=== PATIENT | male | born 1955 | race Caucasian/White ===

== ENCOUNTER 2017-07-27 06:04 | Emergency (ER) | payer BC ==
[2017-07-27] MEDS ORDERED: ADENOSINE 6 MG/2 ML VIAL ONE ×2 (06:17→06:21)
[2017-07-27] MEDS ORDERED: ADENOSINE 6 MG/2 ML VIAL IVP ONE ×2 (06:18→06:20)
--- NOTE | 2017-07-27 06:18 | CPEKG ---
Heart Rate: 166 RR Interval: 361 P-R Interval: 224 QRSD Interval: 82 QT Interval: 316 QTC Interval: 526 P [place]: 0 QRS [place]: 21 T Wave [place]: 68 EKG Severity - ABNORMAL ECG - EKG Impression: SUPRAVENTRICULAR TACHYCARDIA EKG Impression: LOW VOLTAGE IN FRONTAL LEADS EKG Impression: BORDERLINE R WAVE PROGRESSION, ANTERIOR LEADS Electronically Signed By: Rajani Villarreal 27-Jul-2017 07:44:10
[2017-07-27] MEDS ORDERED: NS 1,000 ML IV ONE ×3 (06:31→07:09)
[2017-07-27 06:36] LABS: % IMMATURE GRANULYOCYTES 0.3 % (0.0-1.1); ABSOLUTE IMMATURE GRANULOCYTES 0.02 10^3/uL (0.00-0.10); ADD DIFF? NO; ADD MORPH? NO; ADD SCAN? NO; ATYPICAL LYMPHOCYTE FLAG 0 (0-99); FRAGMENT RBC FLAG 0 (0-99); HEMATOCRIT 43.6 % (40.0-51.0); LEFT SHIFT FLG 0 (0-99); LIPEMIA HEMOLYSIS FLAG 90 (0-99); MEAN CELL HEMOGLOBIN 30.3 pg (27.9-34.1); MEAN CELL HEMOGLOBIN CONCENTR. 34.4 g/dL (32.4-36.7); MEAN CELL VOLUME 88.1 fL (81.5-99.8); MEAN PLATELET VOLUME 12.3 fL (8.7-11.7); PLATELET CLUMPS FLAG 20 (0-99); PLATELET COUNT 161 10^3/uL (150-400); RED BLOOD CELL COUNT 4.95 10^6/uL (4.40-6.38); RED CELL DISTRIBUTION WIDTH 14.1 % (11.5-15.2)
[2017-07-27 06:42] LABS: ANION GAP 16 mEq/L (8-16); CALCIUM 9.3 mg/dL (8.5-10.4); CARBON DIOXIDE 21 mEq/l (22-31); CHLORIDE 97 mEq/L (97-110); CREATININE 0.8 mg/dL (0.7-1.3); GLOMERULAR FILTRATION RATE > 60; GLUCOSE 112 mg/dL (70-100); POTASSIUM 3.7 mEq/L (3.5-5.2); SODIUM 134 mEq/L (134-144)
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
[2017-07-27 06:53] LABS: TROPONIN I < 0.012 ng/mL (0.000-0.034)
--- NOTE | 2017-07-27 07:06 | CPEKG ---
Heart Rate: 147 RR Interval: 408 P-R Interval: 132 QRSD Interval: 86 QT Interval: 268 QTC Interval: 420 P [place]: 61 QRS [place]: 19 T Wave [place]: 75 EKG Severity - OTHERWISE NORMAL ECG - EKG Impression: SINUS TACHYCARDIA EKG Impression: LOW VOLTAGE IN FRONTAL LEADS Electronically Signed By: Rajani Villarreal 27-Jul-2017 07:43:48
[2017-07-27 08:30] LABS: COLOR YELLOW; LEUKOCYTE ESTERASE,URINE NEGATIVE (NEGATIVE); NITRITE,URINE NEGATIVE (NEGATIVE)
[2017-07-27] MEDS: METOPROLOL TARTRATE 5 MG/5 ML INJ IVP SCH ×3 (09:14→09:35)
[2017-07-27] MEDS ORDERED: IOPAMIDOL (ISOVUE 370) 100 ML BTL IV ONE (09:59)
[2017-07-27 11:16] VITALS: BP 120/86; PULSE 108; RESP 18; TEMP 98.6; O2SAT 95
--- NOTE | 2017-07-27 13:31 | ECHO ---
[email or web address] [address] [address] Main: [phone] Fax: Transthoracic Echocardiogram Name: TRENTON CLARK MR#: [id number] Study Date: 07/27/2017 Study Time: 09:55 AM Date of : 1955 Age: 61 year(s) Height: 182.9 cm (72 in.) Weight: 86.18 kg (190 lb.) BSA: 2.08 m2 Gender: Male Examination: Echo Indication: Supraventricular Tachycardia, SOB, Diaphoresis Image Quality: Contrast: Requested by: Rajani Villarreal BP: 117 mmHg/78 mmHg Heart Rate: Rhythm: Sinus tachycardia Indication: Supraventricular Tachycardia, SOB, Diaphoresis Procedure Staff Ordering Physician: DALJIT Blow Mold Operator: Dominic Suarez Reading Physician: Lily Owusu Conclusions: Normal size left ventricle. Low normal left ventricular systolic function (EF 53 %). The mid anteroseptal and mid septal wall segments are hypokinetic. No significant valvular disease There is no previous echocardiogram for comparison. Measurements: Chambers Valvular Assessment AV/MV Valvular Assessment TV/PV Normal Normal Normal Name Value Range Name Value Range Name Value Range Ao Portia (MM): 3.1 cm (2.2 cm-3.7 AV Vmax: 0.99 m/s (1 m/s-1.7 TR Vmax: 2.77 mm/s ( - ) cm) m/s) TR PGmax: 31 mmHg ( - ) IVSd (2D): 0.7 cm (0.6 cm-1.1 AV maxP mmHg ( - ) syst. PAP: 36 mmHg ( - ) cm) LVOT Vmax: 0.73 m/s (0.7 m/s-1.1 PV Vmax: 0.75 cm/s (0.6 m/s-0.9 LVDd (2D): 4.8 cm (4.2 cm-5.9 m/s) m/s) cm) MV E Vmax: 0.80 cm/s ( - ) PV PGmax: 2 mmHg ( - ) LVDs (2D): 3.9 cm (2.1 cm-4 MV A Vmax: 0.36 cm/s ( - ) cm) MV E/A: 2.22 ( - ) LVPWd (2D): 0.9 cm (0.6 cm-1 cm) LVEF (MOD4): 53 % (>=55 %) Visual EF: 55 Continued Measurements: Chambers Valvular Assessment AV/MV Valvular Assessment TV/PV Name Value Name Value Name Value LA Area: 15.0 cm2 MV E/E' Septal: 18.10 CVP (est.): 5 LA Volume: 38 ml MV E/E' Lateral: 10.10 Patient: TRENTON CLARK Study Date: 07/27/2017 Page 1 of 2 09:55 AM LA Volume Index: 18.3 ml/m2 Findings: Left Ventricle: Normal size left ventricle. Low normal left ventricular systolic function (EF 53 %). The mid anteroseptal and mid septal wall segments are hypokinetic. All remaining scored wall segments are normal. Diastolic dysfunction is present. . Right Ventricle: Normal size right ventricle. Normal RV function. Left Atrium: The left atrium is normal in size. Right Atrium: The right atrium is normal in size. Mitral Valve: The mitral valve is normal in appearance and function. Aortic Valve: The aortic valve is normal in appearance. The aortic valve is tri-leaflet. Tricuspid Valve: The tricuspid valve appears normal. Mild tricuspid regurgitation is present. The pulmonary artery pressure is normal. Pulmonic Valve: The pulmonic valve is normal in appearance and function. Great Vessels: The aorta is normal. Pericardium: No pericardial effusion. (No Signature Object) Wall Motion Scores Patient: TRENTON CLARK Study Date: 07/27/2017 Page 2 of 2 09:55 AM [id number]
== END 2017-07-27 11:16 | disposition home or self-care (01) ==
DX: E86.0 Dehydration (principal); R00.0 Tachycardia, unspecified; J45.909 Unspecified asthma, uncomplicated; I10 Essential (primary) hypertension; Z87.891 Personal history of nicotine dependence
CPT/HCPCS: 80305; 96374; J0153; Q9967

== ENCOUNTER → 2017-07-29 | Outpatient (CLI) | payer BC | LOC: BMCIMAGING 10:13 | PROVIDERS: ATTEND Internal Medicine | DX: R50.9 Fever, unspecified (principal); R05 Cough ==

== ENCOUNTER → 2017-08-27 | Outpatient (CLI) | payer BC | LOC: BMCIMAGING 12:45 | PROVIDERS: ATTEND Internal Medicine | DX: R50.9 Fever, unspecified (principal) ==

== ENCOUNTER 2017-08-28 11:11 | Observation (INO) | payer BC ==
[~2017-08-28 11:11] MED LIST: ENOXAPARIN 80 MG/0.8 ML SYR SC SCH
--- NOTE | 2017-08-28 11:25 | CPEKG ---
Heart Rate: 137 RR Interval: 438 QRSD Interval: 82 QT Interval: 296 QTC Interval: 447 QRS [place]: 47 T Wave [place]: 72 EKG Severity - ABNORMAL ECG - EKG Impression: ATRIAL FLUTTER, A-RATE 205 EKG Impression: BORDERLINE T ABNORMALITIES, ANT-LAT LEADS Electronically Signed By: Armani Morgan 28-Aug-2017 11:57:32
[2017-08-28] MEDS ORDERED: NS 1,000 ML IV ONE (11:47)
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
[2017-08-28 11:54] LABS: PLATELET COUNT 318 10^3/uL (150-400)
[2017-08-28 11:58] LABS: INR 1.15 (0.83-1.16); PROTIME(PATIENT) 14.6 SEC (12.0-15.0)
[2017-08-28] MEDS ORDERED: HEPARIN/DEXTROSE 500 ML IV ONE (13:11)
[2017-08-28] MEDS ORDERED: HEPARIN 10,000 UNIT/10 ML MDV IVP ONE (13:11)
[2017-08-28] MEDS ORDERED: ONDANSETRON 4 MG/2 ML VIAL IVP PRN (15:06)
[2017-08-28] MEDS ORDERED: ACETAMINOPHEN 325 MG TAB PO PRN (15:06)
[2017-08-28] MEDS ORDERED: ALBUTEROL 3 ML DEYVIAL IH PRN (15:06)
[2017-08-28] MEDS ORDERED: ONDANSETRON DISINTEGRATING 4 MG TAB PO PRN (15:06)
[2017-08-28] MEDS ORDERED: NS 1,000 ML IV SCH (15:45)
[2017-08-28] MEDS ORDERED: IOPAMIDOL (ISOVUE 370) 100 ML BTL IV ONE (15:50)
--- NOTE | 2017-08-28 15:52 | PDGENHP ---
History and Physical - Chief Complaint Fever, Tachycardia - History of Present Illness 61 yo male presented to his PCP office today with malaise and tachycardia. He has been having fevers for the last 6 days. Tmax 102. He has been experience some SOB. No cough or other resp symptoms, no N/V/D, No rash, no URI sx's. About 6 weeks ago he was having fevers and was given Azithromycin which helped for a few weeks. He does not have any urinary sx's. He is not hypotensive. Today at his PCP's office he was found to be in AFib and sent to the E.D. He does not have any previous hx of Afib. His PCP is concerned about endocarditis CXR was unremarkable. WBC wnl. EKG c/w Afib. BMP ok. He was started on Heparin in the ED PMHx: Pinched nerve pain, HTN, C7/T1 neck fusion, carpal tunnel syndorme, left knee surgery, left hand surgery, keloid extraction, PUD, HTN Soc Hx: -previous tobacco use -social ETOH, no illicits FmHx: NC History Information - Allergies/Home Medication List Allergies/Adverse Reactions: No Known Allergies Allergy (Verified 08/28/17 11:14) Home Medications: Ibuprofen [Motrin (*)] 200 mg PO DAILY PRN 08/28/17 [Last Taken Unknown] Propranolol HCl [Inderal 10mg (*)] 10 mg PO TID 08/28/17 [Last Taken 08/27/17] I have personally reviewed and updated: medical history, social history - Social History Smoking Status: Former smoker Alcohol Use: Heavy Drug Use: None Review of Systems Review of Systems: ROS: 10pt was reviewed & negative except for what was stated in HPI & below Physical Exam Physical Exam: Temp Pulse Resp BP Pulse Ox 36.9 C 85 20 118/81 H 98 08/28/17 14:49 08/28/17 14:49 08/28/17 14:49 08/28/17 14:49 08/28/17 14:49 Constitutional: no apparent distress Eyes: PERRL, EOMI Ears, Nose, Mouth, Throat: moist mucous membranes, hearing normal Cardiovascular: regular rate and rhythym, No edema Respiratory: no respiratory distress, no rales or rhonchi, clear to auscultation Gastrointestinal: normoactive bowel sounds, soft, non-tender abdomen Skin: warm Neurologic: AAOx3 Psychiatric: interacting appropriately, not anxious, not encephalopathic Lab Data & Imaging Review 08/28/17 11:25 08/28/17 11:25 WBC 6.40 10^3/uL (3.80-9.50) 08/28/17 11:25 RBC 4.48 10^6/uL (4.40-6.38) 08/28/17 11:25 Hgb 13.5 g/dL (13.7-17.5) L 08/28/17 11:25 Hct 40.2 % (40.0-51.0) 08/28/17 11:25 MCV 89.7 fL (81.5-99.8) 08/28/17 11:25 MCH 30.1 pg (27.9-34.1) 08/28/17 11:25 MCHC 33.6 g/dL (32.4-36.7) 08/28/17 11:25 RDW 12.8 % (11.5-15.2) 08/28/17 11:25 Plt Count 318 10^3/uL (150-400) D 08/28/17 11:25 MPV 10.5 fL (8.7-11.7) 08/28/17 11:25 Neut % (Auto) 56.6 % (39.3-74.2) 08/28/17 11:25 Lymph % (Auto) 18.3 % (15.0-45.0) 08/28/17 11:25 [place] % (Auto) 16.6 % (4.5-13.0) H 08/28/17 11:25 Eos % (Auto) 6.6 % (0.6-7.6) 08/28/17 11:25 Baso % (Auto) 1.3 % (0.3-1.7) 08/28/17 11:25 Nucleat RBC Rel Count 0.0 % (0.0-0.2) 08/28/17 11:25 Absolute Neuts (auto) 3.63 10^3/uL (1.70-6.50) 08/28/17 11:25 Absolute Lymphs (auto) 1.17 10^3/uL (1.00-3.00) 08/28/17 11:25 Absolute Monos (auto) 1.06 10^3/uL (0.30-0.80) H 08/28/17 11:25 Absolute Eos (auto) 0.42 10^3/uL (0.03-0.40) H 08/28/17 11:25 Absolute Basos (auto) 0.08 10^3/uL (0.02-0.10) 08/28/17 11:25 Absolute Nucleated RBC 0.00 10^3/uL (0-0.01) 08/28/17 11:25 Immature Gran % 0.6 % (0.0-1.1) 08/28/17 11:25 Immature Gran # 0.04 10^3/uL (0.00-0.10) 08/28/17 11:25 PT 14.6 SEC (12.0-15.0) 08/28/17 11:25 INR 1.15 (0.83-1.16) 08/28/17 11:25 APTT 31.4 SEC (23.0-38.0) 08/28/17 11:25 VBG Lactic Acid 1.5 mmol/L (0.7-2.1) 08/28/17 11:55 Sodium 138 mEq/L (134-144) 08/28/17 11:25 Potassium 4.2 mEq/L (3.5-5.2) 08/28/17 11:25 Chloride 101 mEq/L (97-110) 08/28/17 11:25 Carbon Dioxide 26 mEq/l (22-31) 08/28/17 11:25 Anion Gap 11 mEq/L (8-16) 08/28/17 11:25 BUN 10 mg/dL (7-23) 08/28/17 11:25 Creatinine 0.7 mg/dL (0.7-1.3) 08/28/17 11:25 Estimated GFR > 60 08/28/17 11:25 Glucose 93 mg/dL (70-100) 08/28/17 11:25 Calcium 9.2 mg/dL (8.5-10.4) 08/28/17 11:25 Total Bilirubin 0.5 mg/dL (0.1-1.4) 08/28/17 11:25 Conjugated Bilirubin 0.4 mg/dL (0.0-0.5) 08/28/17 11:25 Unconjugated Bilirubin 0.1 mg/dL (0.0-1.1) 08/28/17 11:25 AST 112 IU/L (17-59) H 08/28/17 11:25 ALT 80 IU/L (21-72) H 08/28/17 11:25 Alkaline Phosphatase 133 IU/L (38-126) H 08/28/17 11:25 Troponin I < 0.012 ng/mL (0.000-0.034) 08/28/17 11:25 Total Protein 8.0 g/dL (6.3-8.2) 08/28/17 11:25 Albumin 3.6 g/dL (3.5-5.0) 08/28/17 11:25 Lipase 354 IU/L (23-300) H 08/28/17 11:25 Urine Color YELLOW 08/28/17 14:00 Urine Appearance CLEAR 08/28/17 14:00 Urine pH 5.0 (5.0-7.5) 08/28/17 14:00 Ur Specific [place] 1.015 (1.002-1.030) 08/28/17 14:00 Urine Protein NEGATIVE (NEGATIVE) 08/28/17 14:00 Urine Ketones TRACE (NEGATIVE) H 08/28/17 14:00 Urine Blood NEGATIVE (NEGATIVE) 08/28/17 14:00 Urine Nitrate NEGATIVE (NEGATIVE) 08/28/17 14:00 Urine Bilirubin NEGATIVE (NEGATIVE) 08/28/17 14:00 Urine Urobilinogen NEGATIVE EU (0.2-1.0) 08/28/17 14:00 Ur Leukocyte Esterase NEGATIVE (NEGATIVE) 08/28/17 14:00 Urine Glucose NEGATIVE (NEGATIVE) 08/28/17 14:00 Nasal Influenza A PCR NEGATIVE FOR FLU A (NEGATIVE) 08/28/17 13:00 Nasal Influenza B PCR NEGATIVE FOR FLU B (NEGATIVE) 08/28/17 13:00 Assessment & Plan Assessment: #Afib, new onset #Fever of unknown origin Plan: -Admit -Metoprolol BID -Start Lovenox -Check CTA -Check CRP, ESR, PC, Blood culture -Check TTE -IVF For now I will hold off on abx. There is no clear source. No Leukocytosis. Will await w/u. May need cards consult pending w/u and clinical course Full code.
--- NOTE | 2017-08-28 16:25 | ECHO ---
[email or web address] [address] [address] Main: [phone] Fax: Transthoracic Echocardiogram Name: TRENTON CLARK MR#: [id number] Study Date: 08/28/2017 Study Time: 12:15 PM Date of : 1955 Age: 61 year(s) Height: 182.9 cm (72 in.) Weight: 83.92 kg (185 lb.) BSA: 2.06 m2 Gender: Male Examination: Echo Indication: New onset Atrial Fibrillation Image Quality: Contrast: Requested by: Armani Morgan BP: 148 mmHg/82 mmHg Heart Rate: Rhythm: Atrial fibrillation Indication: New onset Atrial Fibrillation Procedure Staff Boilermaking Supervisor: Dominic Suarez Reading Physician: Trenton Jang Requesting Provider: Conclusions: Normal global systolic LV function. EF is 64 %. There is no mitral valve regurgitation. There is no aortic valve regurgitation. Mild tricuspid regurgitation is present. In comparison to prior echocardiogram from 07-27-17 - prior wall motion abnormalities to the mid septal and anteroseptal wall are no longer noted (normal wall motion in this study) Measurements: Chambers Valvular Assessment AV/MV Valvular Assessment TV/PV Normal Normal Normal Name Value Range Name Value Range Name Value Range Ao Portia (MM): 3.4 cm (2.2 cm-3.7 AV Vmax: 1.43 m/s (1 m/s-1.7 TR Vmax: 2.52 mm/s ( - ) cm) m/s) TR PGmax: 25 mmHg ( - ) IVSd (2D): 0.7 cm (0.6 cm-1.1 AV maxP mmHg ( - ) syst. PAP: 30 mmHg ( - ) cm) LVOT Vmax: 0.88 m/s (0.7 m/s-1.1 PV Vmax: 1.00 m/s (0.6 m/s-0.9 LVDd (2D): 5.4 cm (4.2 cm-5.9 m/s) m/s) cm) MV E Vmax: 0.60 m/s ( - ) PV PGmax: 4 mmHg ( - ) LVDs (2D): 3.5 cm (2.1 cm-4 MV A Vmax: 0.58 m/s ( - ) cm) MV E/A: 1.03 ( - ) LVPWd (2D): 1.0 cm (0.6 cm-1 cm) LVEF (2D): 64 (>=54 %) Continued Measurements: Chambers Valvular Assessment AV/MV Valvular Assessment TV/PV Name Value Name Value Name Value LADs Lon.9 cm MV E/E' Septal: 7.90 CVP (est.): 5 mmHg LA Area: 18.9 cm2 MV E/E' Lateral: 9.80 Patient: TRENTON CLARK Study Date: 08/28/2017 Page 1 of 2 12:15 PM LA Volume: 61 ml LA Volume Index: 29.6 ml/m2 Findings: Left Ventricle: Normal size left ventricle. No LV hypertrophy. Normal global systolic LV function. EF is 64 %. No regional wall motion abnormality. Right Ventricle: Normal size right ventricle. Normal RV function. Left Atrium: The left atrium is normal in size. Right Atrium: The right atrium is normal in size. Mitral Valve: The mitral valve is normal in appearance and function. There is no mitral valve regurgitation. Aortic Valve: The aortic valve is normal in appearance and function. The aortic valve is tri-leaflet. There is no aortic valve regurgitation. Tricuspid Valve: The tricuspid valve is normal in appearance and function. Mild tricuspid regurgitation is present. The pulmonary artery pressure is normal. Pulmonic Valve: Pulmonary valve not well visualized. Aorta: The aorta is normal. Pericardium: No pericardial effusion. (No Signature Object) Patient: TRENTON CLARK Study Date: 08/28/2017 Page 2 of 2 12:15 PM [id number]
--- NOTE | 2017-08-28 16:25 | ECHO ---
[email or web address] [address] [address] Main: [phone] Fax: Transthoracic Echocardiogram Name: TRENTON CLARK MR#: [id number] Study Date: 08/28/2017 Study Time: 12:15 PM Date of : 1955 Age: 61 year(s) Height: 182.9 cm (72 in.) Weight: 83.92 kg (185 lb.) BSA: 2.06 m2 Gender: Male Examination: Echo Indication: New onset Atrial Fibrillation Image Quality: Contrast: Requested by: Armani Morgan BP: 148 mmHg/82 mmHg Heart Rate: Rhythm: Atrial fibrillation Indication: New onset Atrial Fibrillation Procedure Staff Oncology Specialist: Dominic Suarez Reading Physician: Trenton Jang Requesting Provider: Conclusions: Normal global systolic LV function. EF is 64 %. There is no mitral valve regurgitation. There is no aortic valve regurgitation. Mild tricuspid regurgitation is present. In comparison to prior echocardiogram from 07-27-17 - prior wall motion abnormalities to the mid septal and anteroseptal wall are no longer noted (normal wall motion in this study) Measurements: Chambers Valvular Assessment AV/MV Valvular Assessment TV/PV Normal Normal Normal Name Value Range Name Value Range Name Value Range Ao Portia (MM): 3.4 cm (2.2 cm-3.7 AV Vmax: 1.43 m/s (1 m/s-1.7 TR Vmax: 2.52 mm/s ( - ) cm) m/s) TR PGmax: 25 mmHg ( - ) IVSd (2D): 0.7 cm (0.6 cm-1.1 AV maxP mmHg ( - ) syst. PAP: 30 mmHg ( - ) cm) LVOT Vmax: 0.88 m/s (0.7 m/s-1.1 PV Vmax: 1.00 m/s (0.6 m/s-0.9 LVDd (2D): 5.4 cm (4.2 cm-5.9 m/s) m/s) cm) MV E Vmax: 0.60 m/s ( - ) PV PGmax: 4 mmHg ( - ) LVDs (2D): 3.5 cm (2.1 cm-4 MV A Vmax: 0.58 m/s ( - ) cm) MV E/A: 1.03 ( - ) LVPWd (2D): 1.0 cm (0.6 cm-1 cm) LVEF (2D): 64 (>=54 %) Continued Measurements: Chambers Valvular Assessment AV/MV Valvular Assessment TV/PV Name Value Name Value Name Value LADs Lon.9 cm MV E/E' Septal: 7.90 CVP (est.): 5 mmHg LA Area: 18.9 cm2 MV E/E' Lateral: 9.80 Patient: TRENTON CLARK Study Date: 08/28/2017 Page 1 of 2 12:15 PM LA Volume: 61 ml LA Volume Index: 29.6 ml/m2 Findings: Left Ventricle: Normal size left ventricle. No LV hypertrophy. Normal global systolic LV function. EF is 64 %. No regional wall motion abnormality. Right Ventricle: Normal size right ventricle. Normal RV function. Left Atrium: The left atrium is normal in size. Right Atrium: The right atrium is normal in size. Mitral Valve: The mitral valve is normal in appearance and function. There is no mitral valve regurgitation. Aortic Valve: The aortic valve is normal in appearance and function. The aortic valve is tri-leaflet. There is no aortic valve regurgitation. Tricuspid Valve: The tricuspid valve is normal in appearance and function. Mild tricuspid regurgitation is present. The pulmonary artery pressure is normal. Pulmonic Valve: Pulmonary valve not well visualized. Aorta: The aorta is normal. Pericardium: No pericardial effusion. (No Signature Object) Patient: TRENTON CLARK Study Date: 08/28/2017 Page 2 of 2 12:15 PM [id number]
--- NOTE | 2017-08-28 16:25 | ECHO ---
[email or web address] [address] [address] Main: [phone] Fax: Transthoracic Echocardiogram Name: TRENTON CLARK MR#: [id number] Study Date: 08/28/2017 Study Time: 12:15 PM Date of : 1955 Age: 61 year(s) Height: 182.9 cm (72 in.) Weight: 83.92 kg (185 lb.) BSA: 2.06 m2 Gender: Male Examination: Echo Indication: New onset Atrial Fibrillation Image Quality: Contrast: Requested by: Armani Morgan BP: 148 mmHg/82 mmHg Heart Rate: Rhythm: Atrial fibrillation Indication: New onset Atrial Fibrillation Procedure Staff Head Of Ict: Dominic Suarez Reading Physician: Trenton Jang Requesting Provider: Conclusions: Normal global systolic LV function. EF is 64 %. There is no mitral valve regurgitation. There is no aortic valve regurgitation. Mild tricuspid regurgitation is present. In comparison to prior echocardiogram from 07-27-17 - prior wall motion abnormalities to the mid septal and anteroseptal wall are no longer noted (normal wall motion in this study) Measurements: Chambers Valvular Assessment AV/MV Valvular Assessment TV/PV Normal Normal Normal Name Value Range Name Value Range Name Value Range Ao Portia (MM): 3.4 cm (2.2 cm-3.7 AV Vmax: 1.43 m/s (1 m/s-1.7 TR Vmax: 2.52 mm/s ( - ) cm) m/s) TR PGmax: 25 mmHg ( - ) IVSd (2D): 0.7 cm (0.6 cm-1.1 AV maxP mmHg ( - ) syst. PAP: 30 mmHg ( - ) cm) LVOT Vmax: 0.88 m/s (0.7 m/s-1.1 PV Vmax: 1.00 m/s (0.6 m/s-0.9 LVDd (2D): 5.4 cm (4.2 cm-5.9 m/s) m/s) cm) MV E Vmax: 0.60 m/s ( - ) PV PGmax: 4 mmHg ( - ) LVDs (2D): 3.5 cm (2.1 cm-4 MV A Vmax: 0.58 m/s ( - ) cm) MV E/A: 1.03 ( - ) LVPWd (2D): 1.0 cm (0.6 cm-1 cm) LVEF (2D): 64 (>=54 %) Continued Measurements: Chambers Valvular Assessment AV/MV Valvular Assessment TV/PV Name Value Name Value Name Value LADs Lon.9 cm MV E/E' Septal: 7.90 CVP (est.): 5 mmHg LA Area: 18.9 cm2 MV E/E' Lateral: 9.80 Patient: TRENTON CLARK Study Date: 08/28/2017 Page 1 of 2 12:15 PM LA Volume: 61 ml LA Volume Index: 29.6 ml/m2 Findings: Left Ventricle: Normal size left ventricle. No LV hypertrophy. Normal global systolic LV function. EF is 64 %. No regional wall motion abnormality. Right Ventricle: Normal size right ventricle. Normal RV function. Left Atrium: The left atrium is normal in size. Right Atrium: The right atrium is normal in size. Mitral Valve: The mitral valve is normal in appearance and function. There is no mitral valve regurgitation. Aortic Valve: The aortic valve is normal in appearance and function. The aortic valve is tri-leaflet. There is no aortic valve regurgitation. Tricuspid Valve: The tricuspid valve is normal in appearance and function. Mild tricuspid regurgitation is present. The pulmonary artery pressure is normal. Pulmonic Valve: Pulmonary valve not well visualized. Aorta: The aorta is normal. Pericardium: No pericardial effusion. (No Signature Object) Patient: TRENTON CLARK Study Date: 08/28/2017 Page 2 of 2 12:15 PM [id number]
[2017-08-28] MEDS ORDERED: ENOXAPARIN 80 MG/0.8 ML SYR SC ONE (16:30)
[2017-08-28] MEDS: METOPROLOL TARTRATE 25 MG TAB PO SCH ×2 (16:42→21:54)
[2017-08-29] MEDS ORDERED: ENOXAPARIN 80 MG/0.8 ML SYR SC SCH (06:00)
[2017-08-29 06:54] LABS: PLATELET COUNT 297 10^3/uL (150-400)
[2017-08-29] MEDS ORDERED: ENOXAPARIN 40 MG/0.4 ML SYR SC SCH (09:00)
[2017-08-29] MEDS: METOPROLOL TARTRATE 25 MG TAB PO SCH (09:36)
--- NOTE | 2017-08-29 09:59 | HOSPPROG ---
Hospitalist Progress Note Assessment/Plan: 61 yo male who has been having intermittent fevers and malaise for weeks. Started on Azithromycin several weeks ago with resolution, but fevers returned about a week ago. Tmax 102. Seen at his PCP's office yesterday and found to be in Afib and sent for admission. W/u c/w no leukocytosis, UA -, LA -, PC: 0.45. Afebrile since admission. BCx NGTF. CTA -, TTE with normal valves and preserved ejection fraction, no specific mention of vegetations, mild elevated CRP and ESR. Afib is better with Metoprolol. Now out of Afib. On Lovenox Plan: -ID consult. Will obtain CT Abd and Pelvis -No abx for now, dont have a clear source, afebrile while here -Stopped IVF -Cont Metoprolol -Cont Lovenox, can switch to Xarelto if w/u is negative -Cont Telemetry -Confirm with Card no e/o of vegetations -Full code Anticipate discharge pending w/u either today or tomorrow #Afib, new onset #Fever of unknown origin Subjective: Feels better. No CP or SOB. Afebrile. Not in Afib Objective: Vital Signs Temp Pulse Resp BP Pulse Ox 36.4 C 104 H 17 106/64 96 08/29/17 07:11 08/29/17 07:11 08/29/17 07:11 08/29/17 07:11 08/29/17 07:11 Laboratory Results 08/29/17 06:40 08/29/17 06:40 08/28/17 08/29/17 08/30/17 05:59 05:59 05:59 Intake Total 1650 Balance 1650 PT 14.6 SEC (12.0-15.0) 08/28/17 11:25 INR 1.15 (0.83-1.16) 08/28/17 11:25 - Physical Exam Constitutional: no apparent distress Eyes: PERRL, EOMI Ears, Nose, Mouth, Throat: moist mucous membranes, hearing normal Cardiovascular: regular rate and rhythym, no murmur, rub, or gallop Respiratory: no respiratory distress, no rales or rhonchi, clear to auscultation Gastrointestinal: normoactive bowel sounds, soft, non-tender abdomen Skin: warm Musculoskeletal: full muscle strength Neurologic: AAOx3 Psychiatric: interacting appropriately, not anxious, not encephalopathic ICD10 Worksheet Patient Problems: Problems Problem Status Onset Atrial fibrillation Acute Fever Acute GI bleed Acute
[2017-08-29] MEDS ORDERED: NS 500 ML IV ONE (11:30)
[2017-08-29 11:57] VITALS: BP 105/77; PULSE 87; RESP 18; TEMP 97.9; O2SAT 94
[2017-08-29] MEDS ORDERED: IOPAMIDOL (ISOVUE-300) 100 ML BTL ONE (11:57)
--- NOTE | 2017-08-29 13:32 | GCON ---
[f rep st] CONSULTATION INFECTIOUS DISEASES CONSULTATION DATE OF CONSULTATION: 08/29/2017 REFERRING PHYSICIAN: Dirk Wiley MD REASON FOR CONSULTATION: Fever of unknown origin. HISTORY OF PRESENT ILLNESS: Patient is a 61-year-old male without significant past medical history, whom I am asked to see in consultation for fever of unknown origin. The patient describes having a f ever for 7-10 days in late July. He was seen in the emergency department as part of that evalua tion, at which point in time he was having some associated cough. A CT scan of the chest was perform ed showing bibasilar atelectasis. The patient was treated with a 5-day course of azithromycin and fe lt clinically improved. He did have a superimposed SVT at that point in time, which resolved with us e of adenosine. He felt better for approximately 7-10 days, but then has experienced recurrent fever over the last week. His temperatures typically reach the 102 degree range. These are associated wi th rigors. They typically occur in the morning. He also has had night sweats, which are drenching i n nature. He has lost 10-15 pounds, which has been on intentional. Currently, he does not have any further cough or shortness of breath. He denies headache or sore throat. No visual changes. No lennie sea, vomiting, diarrhea, or abdominal pain. No urinary symptoms. No skin rash. He does not have as sociated arthralgias or myalgias. No recent travel history. He has a pet dog at home without other animal exposures. No time spent landscaping. No known tick or mosquito exposure. Previously, he nieves s traveled frequently to [facility] for fishing trips. A CT scan of his chest performed overni does not show evidence of PE or pneumonia. Blood cultures have been obtained. Yesterday, the arthur ent was noted by his PCP to have atrial fibrillation and was referred for further evaluation. Repeat echocardiogram shows no evidence of endocarditis with normal valvular function. The patient has bee n observed off antibiotic therapy. No recent dental work or dental problems. Given the above findin gs, I am now asked to assist in his ongoing management. PAST MEDICAL HISTORY: Hypercholesterolemia. PAST SURGICAL HISTORY: Cervical fusion, left knee surgery. CURRENT MEDICATIONS: Lovenox 80 mg subcu b.i.d., Lopressor 25 mg p.o. b.i.d. ALLERGIES: No known drug allergies. SOCIAL HISTORY: The patient does not smoke. He drinks alcohol several times per week. No drug use. Sexual preference is heterosexual. No sexual activity for the last 6 months. Has had unprotected sexual activity previously. FAMILY HISTORY: Prostate cancer. REVIEW OF SYSTEMS: Outside that noted in the HPI, the remainder of 10-system review is unremarkable. PHYSICAL EXAMINATION: VITAL SIGNS: Temperature 36.6, heart rate 87, respiratory rate 18, blood pres sure 105/77, oxygen saturation 94% on room air. GENERAL: Patient is well nourished, well developed, in no acute distress. He appears nontoxic. HEENT: There is no scleral icterus, conjunctival injec tion, or conjunctival petechiae. Oropharynx is clear without lesions. The dentition is in fair repa ir. Mucous membranes are moist. There is no nasal discharge. There is no tenderness over the front al, maxillary, or mastoid area. There is no tenderness over the temporal regions. NECK: Supple wit hout palpable lymphadenopathy or thyromegaly. CHEST: Clear to auscultation bilaterally without adve ntitious sounds. Respiratory effort is normal. CARDIOVASCULAR: Regular rate and rhythm without mur murs, gallops, or rubs. ABDOMEN: Soft, nontender, nondistended. There is no palpable organomegaly. Bowel sounds are present. MUSCULOSKELETAL: There is no cyanosis, clubbing, or edema. SKIN: No r ashes present. There are no stigmata of endocarditis. Skin is warm and dry to touch. NEUROLOGIC: Patient is alert and interacts appropriately with the examiner. Cranial nerves 2-[address] Sensation is grossly intact. Muscle tone and bulk are normal. LYMPHATICS: No cervical, suprac lavicular, or inguinal nodes palpable. LABORATORY DATA: White blood cell count 5.5, hematocrit 37.9, platelets 297, neutrophils 55%, lympho cytes 18%, monocytes 17%, eosinophils 7.5%, absolute eosinophil count 410. ESR 32. Serum creatinine 0.6. AST 112, ALT 80, alkaline phosphatase 133, bilirubin 0.5, CRP 16.7, albumin 3.6. Procalcitoni n 0.45. TSH 1.9. Urinalysis shows trace ketones. Influenza by PCR is negative. Venous lactate is 1.5, INR 1.15. Blood cultures x2 sets are pending. HIV antibody negative. IMAGING DATA: Chest CT and echocardiogram as outlined above. IMPRESSION: 1. Fever of unknown origin: No defined etiology for the patient's fever without specific localizing findings. Considerations would include infectious etiologies, autoimmune processes, or malignancy. Standard evaluation would include CT scan of the abdomen and pelvis to assess for any intraabdominal pathology. No discrete exposure history to suggest zoonotic illness. 2. Transaminitis: Mild transaminitis. Will further assess for autoimmune hepatitis given fever of unknown origin. RECOMMENDATIONS: 1. Observe off antibiotics. 2. CT scan abdomen and pelvis. 3. Follow up blood cultures as available. 4. Check MAIRA, antismooth muscle antibody, ANCA, and syphilis IgG. 5. If CT scan of the abdomen and pelvis is unrevealing, patient could be followed in my office as an outpatient for further evaluation. Thank you for this consultation. We will continue to follow the patient with you. /[id number]/MODL
--- NOTE | 2017-08-29 14:25 | PDDCSUM ---
Discharge Summary Discharge Summary: HPI/HOSPITAL COURSE Consultants: ID 61 yo male who has been having intermittent fevers and malaise for weeks. Started on Azithromycin several weeks ago with resolution, but fevers returned about a week ago. Tmax 102. Seen at his PCP's office yesterday and found to be in Afib and sent for admission. W/u c/w no leukocytosis, UA -, LA -, PC: 0.45. Afebrile since admission. BCx NGTF. CTA -, CT ABd/pelvis -, TTE with normal valves and preserved ejection fraction, no e/o endocarditis, mild elevated CRP and ESR. Afib is better with Metoprolol. Now out of Afib. Has been continued on Metoprol and started on Xarelto. Overall he feels much better since he is out of Afib and with IVF. As he is better, he will be discharged off abx. Will f/u with Dr. Fairbanks with ID per their arrangement. Will return to PCP next week. DDx: #Afib, new onset #Fever of unknown origin Exam: see progress note from today Dc Meds: see med rec. New meds Metoprolol and Xarelto f/u: per above.Total time spend on discharge is 45 minutes
[2017-08-29] MEDS ORDERED: RIVAROXABAN 15 MG TAB PO SCH (15:00)
--- NOTE | 2017-08-29 15:06 | ASDISCHSUM ---
Discharge Information Plan Status:Home with No Needs Medically Cleared to Leave: Discharge Date: CM D/C Disposition:Home, Routine, Self-Care ADT D/C Disposition:Home, Routine, Self-Care Projected Discharge Date: Transportation at D/C: Discharge Delay Reason: Follow-Up Date: Discharge Slot: Final Diagnosis: Placement Information Patient Contact Information Contact Name:LOIDA Relationship: Address: Work Phone: City: [facility] Phone: [facility]/[employer] Code:GAMALIEL Email: Financial Information Financial Class:HMO and PPO Plans Primary Plan Desc:[employer] STATE PPO Primary Plan Number:[id number] Secondary Plan Desc: Secondary Plan Number: Assessment Information Intervention Information
--- NOTE | 2017-08-29 15:06 | ASDISCHSUM ---
Discharge Information Plan Status:Home with No Needs Medically Cleared to Leave: Discharge Date: CM D/C Disposition:Home, Routine, Self-Care ADT D/C Disposition:Home, Routine, Self-Care Projected Discharge Date: Transportation at D/C: Discharge Delay Reason: Follow-Up Date: Discharge Slot: Final Diagnosis: Placement Information Patient Contact Information Contact Name:LOIDA Relationship: Address: Work Phone: City: [facility] Phone: [facility]/[employer] Code:GAMALIEL Email: Financial Information Financial Class:HMO and PPO Plans Primary Plan Desc:[employer] STATE PPO Primary Plan Number:[id number] Secondary Plan Desc: Secondary Plan Number: Assessment Information Intervention Information
--- NOTE | 2017-08-29 15:06 | ASDISCHSUM ---
Discharge Information Plan Status:Home with No Needs Medically Cleared to Leave: Discharge Date: CM D/C Disposition:Home, Routine, Self-Care ADT D/C Disposition:Home, Routine, Self-Care Projected Discharge Date: Transportation at D/C: Discharge Delay Reason: Follow-Up Date: Discharge Slot: Final Diagnosis: Placement Information Patient Contact Information Contact Name:LOIDA Relationship: Address: Work Phone: City: [facility] Phone: [facility]/[employer] Code:GAMALIEL Email: Financial Information Financial Class:HMO and PPO Plans Primary Plan Desc:[employer] OUT OF STATE PPO Primary Plan Number:[id number] Secondary Plan Desc: Secondary Plan Number: Assessment Information Intervention Information
--- NOTE | 2017-08-29 15:07 | ASMTCMCOM ---
CM Note CM Note Notes: Pt. is a 61-year-old man admitted in OBS status w/ Afib and a fever. Pt. d/c'ed independently today. Date Signed: 08/29/2017 03:07 PM Electronically Signed By:Marija Michelle LCSW
== END 2017-08-29 15:27 | disposition home or self-care (01) ==
LOC: F2W 14:34
PROVIDERS: ADMIT Family Medicine; ATTEND Family Medicine
CPT/HCPCS: 71020; 71275; 74177; 93005; 93306; G0378; 83516-90; 83520-90; 86255-90; J1644; J1650; Q9967

== ENCOUNTER 2017-09-19 07:17 | Emergency (ER) | payer BC ==
[2017-09-19] MEDS ORDERED: NS 1,000 ML IV ONE (07:27)
--- NOTE | 2017-09-19 07:27 | EDPHY ---
H & P Stated Complaint: llq abd pain and bloody diarrhea Time Seen by Provider: 09/19/17 07:26 HPI/ROS: CHIEF COMPLAINT: Left lower quadrant pain, bloody stool HISTORY OF PRESENT ILLNESS: The patient presents to the ED with several days of left lower quadrant pain, nausea and blood in his stool. The patient has a history of atrial fibrillation. He was recently started on Xarelto. He is also taking metoprolol for rate control. He was hospitalized several weeks ago for fever without source. He has defervesced in that time. The patient was seen by his pbx wire chief who recommended he be evaluated for possible diverticulitis. The patient denies any complaints of chest pain or shortness of breath. He has not yet taken his metoprolol this morning. He rates his pain as a 5/10. REVIEW OF SYSTEMS: A comprehensive 10 point review of systems is otherwise negative aside from elements mentioned in the history of present illness. Source: Patient - Personal History Current Tetanus/Diphtheria Vaccine: Yes Tetanus Vaccine Date: 2006 - Medical/Surgical History Hx Asthma: No Hx Chronic Respiratory Disease: No Hx Diabetes: No Hx Cardiac Disease: Yes Hx Renal Disease: No Hx Cirrhosis: No Hx Alcoholism: No Hx HIV/AIDS: No Hx Splenectomy or Spleen Trauma: No Other PMH: denies. currently has pinched nerve in neck he is taking ibuprofen and vicodin for. HTN; C7T1 neck fusion. carpel tunnel sx L wrist. L knee sx. L hand sx. keloid extraction on R side of abd s/p burn. bleeding stomach ulcer. afib - Social History Smoking Status: Former smoker - Physical Exam Exam: General Appearance: Alert, no distress Eyes: Pupils equal and round no pallor or injection ENT, Mouth: Mucous membranes moist Respiratory: There are no retractions, lungs are clear to auscultation Cardiovascular: Tachycardic, rate 140, irregular Gastrointestinal: Tenderness to palpation left lower quadrant Neurological: A&O, normal motor function, normal sensory exam, normal cranial nerves Skin: Warm and dry, no rashes Musculoskeletal: Neck is supple nontender Extremities: symmetrical, full range of motion Constitutional: Initial Vital Signs Temperature (C) 36.7 C 09/19/17 07:22 Heart Rate 153 H 09/19/17 07:22 Respiratory Rate 20 09/19/17 07:22 Blood Pressure 95/77 L 09/19/17 07:22 O2 Sat (%) 95 09/19/17 07:22 O2 Delivery Mode Room Air Allergies/Adverse Reactions: No Known Allergies Allergy (Verified 09/19/17 07:21) Home Medications: Medication Instructions Recorded RX: Ibuprofen [Motrin (*)] 200 mg PO DAILY PRN 08/28/17 RX: Metoprolol Tartrate [Lopressor 25 mg PO BID #60 tab 08/29/17 25 mg (*)] RX: Rivaroxaban [Xarelto 15mg (*)] 15 mg PO BIDMEAL #42 tab 08/29/17 Medical Decision Making - Diagnostics EKG Interpretation: EKG: Complete interpretation has been separately recorded in the [employer] archive. Summary impression: Sinus tachycardia, rate 141 Imaging Results: Imaging Impressions Abdomen CT 09/19/17 07:36 Impression: 1. Diverticulosis without CT evidence of diverticulitis 2. Possible upper rectal mass. Correlation with sigmoidoscopy is recommended. 3. Localized dirty fat around both nonobstructed kidneys may represent scarring. Correlation with urinalysis is recommended to exclude active urinary tract infection. Results called and discussed with Oleg Caldera, at 09/19/2017 8:55 General information for patients regarding this examination can be found at [email or web address]. If you have questions or comments about this report, please contact me at (hospital) or [phone] (cell). ED Course/Re-evaluation: The patient presents the ED for evaluation of left lower quadrant pain and bloody stools over the past 3 days. Patient was noted to have sinus tachycardia with a rate of 140.. He had not yet had his morning dose of metoprolol. The patient had an IV established. He received a L of normal saline. Given his left lower quadrant tenderness a CT scan of the abdomen pelvis was ordered. CT scan of the abdomen pelvis demonstrates no evidence of diverticulitis. There is some nonspecific fat stranding around the kidneys. The patient has a possible mass noted in his rectum. I did perform a digital rectal examination and an unable to palpate an obvious mass. The patient reports his last colonoscopy was 4 years ago and normal. The patient's urinalysis demonstrates no evidence of an infection. The patient' s tachycardia has resolved. His abdominal examination is reassuring. There is no leukocytosis. I re-evaluated the patient at 10:00 a.m. he will be discharged home. He will follow up with his regular pbx wire chief to review the results of his CT scan to see if colonoscopy is indicated. He understands return to the ED for markedly worsening symptoms or other concerns. He will be discharged home with a plan to return a stool sample for further testing. Differential Diagnosis: Differential diagnosis considered includes diverticulitis, mesenteric ischemia, dehydration, metabolic abnormality - Data Points Laboratory Results: Laboratory Results 09/19/17 07:38 09/19/17 07:38 09/19/17 09/19/17 09/19/17 09:05 07:38 07:38 WBC RBC Hgb Hct MCV MCH MCHC RDW Plt Count MPV Neut % (Auto) Lymph % (Auto) [place] % (Auto) Eos % (Auto) Baso % (Auto) Nucleat RBC Rel Count Absolute Neuts (auto) Absolute Lymphs (auto) Absolute Monos (auto) Absolute Eos (auto) Absolute Basos (auto) Absolute Nucleated RBC Immature Gran % Immature Gran # PT 24.9 SEC H SEC (12.0-15.0) INR 2.23 H (0.83-1.16) APTT 43.7 SEC H SEC (23.0-38.0) Sodium 135 mEq/L mEq/L (134-144) Potassium 3.8 mEq/L mEq/L (3.5-5.2) Chloride 99 mEq/L mEq/L (97-110) Carbon Dioxide 20 mEq/l L mEq/l (22-31) Anion Gap 16 mEq/L mEq/L (8-16) BUN 17 mg/dL mg/dL (7-23) Creatinine 0.9 mg/dL mg/dL (0.7-1.3) Estimated GFR > 60 Glucose 113 mg/dL H mg/dL (70-100) Calcium 9.0 mg/dL mg/dL (8.5-10.4) Urine Color YELLOW Urine Appearance CLEAR Urine pH 5.0 (5.0-7.5) Ur Specific [place] > 1.035 H (1.002-1.030) Urine Protein NEGATIVE (NEGATIVE) Urine Ketones NEGATIVE (NEGATIVE) Urine Blood NEGATIVE (NEGATIVE) Urine Nitrate NEGATIVE (NEGATIVE) Urine Bilirubin NEGATIVE (NEGATIVE) Urine Urobilinogen NEGATIVE EU EU (0.2-1.0) Ur Leukocyte Esterase NEGATIVE (NEGATIVE) Urine Glucose NEGATIVE (NEGATIVE) 09/19/17 07:38 WBC 6.07 10^3/uL 10^3/uL (3.80-9.50) RBC 5.12 10^6/uL 10^6/uL (4.40-6.38) Hgb 15.6 g/dL g/dL (13.7-17.5) Hct 44.9 % % (40.0-51.0) MCV 87.7 fL fL (81.5-99.8) MCH 30.5 pg pg (27.9-34.1) MCHC 34.7 g/dL g/dL (32.4-36.7) RDW 13.6 % % (11.5-15.2) Plt Count 155 10^3/uL 10^3/uL (150-400) MPV 11.1 fL fL (8.7-11.7) Neut % (Auto) 67.2 % % (39.3-74.2) Lymph % (Auto) 14.3 % L % (15.0-45.0) [place] % (Auto) 17.0 % H % (4.5-13.0) Eos % (Auto) 0.5 % L % (0.6-7.6) Baso % (Auto) 0.7 % % (0.3-1.7) Nucleat RBC Rel Count 0.0 % % (0.0-0.2) Absolute Neuts (auto) 4.08 10^3/uL 10^3/uL (1.70-6.50) Absolute Lymphs (auto) 0.87 10^3/uL L 10^3/uL (1.00-3.00) Absolute Monos (auto) 1.03 10^3/uL H 10^3/uL (0.30-0.80) Absolute Eos (auto) 0.03 10^3/uL 10^3/uL (0.03-0.40) Absolute Basos (auto) 0.04 10^3/uL 10^3/uL (0.02-0.10) Absolute Nucleated RBC 0.00 10^3/uL 10^3/uL (0-0.01) Immature Gran % 0.3 % % (0.0-1.1) Immature Gran # 0.02 10^3/uL 10^3/uL (0.00-0.10) PT INR APTT Sodium Potassium Chloride Carbon Dioxide Anion Gap BUN Creatinine Estimated GFR Glucose Calcium Urine Color Urine Appearance Urine pH Ur Specific [place] Urine Protein Urine Ketones Urine Blood Urine Nitrate Urine Bilirubin Urine Urobilinogen Ur Leukocyte Esterase Urine Glucose Medications Given: Discontinued Medications Sodium Chloride (Ns) 1,000 mls @ 0 mls/hr IV EDNOW ONE; Wide Open PRN Reason: Protocol Stop: 09/19/17 07:28 Last Admin: 09/19/17 07:38 Dose: 1,000 mls Metoprolol Tartrate (Lopressor) 50 mg PO EDNOW ONE Stop: 09/19/17 07:38 Last Admin: 09/19/17 07:41 Dose: 50 mg Departure - Departure Disposition: Home, Routine, Self-Care Clinical Impression: Abdominal pain, Atrial fibrillation Condition: Good Instructions: Abdominal Pain (ED) Additional Instructions: 1. Please return a stool pathogens study to the hospital lab with the prescription slip you have been given. 2. Please contact Dr. Valentin to schedule a follow-up visit. There is a questionable mass noted on your CT scan in the rectum which requires further evaluation with endoscopy. 3. Return to the ED for severe abdominal pain, fever, heavy bleeding or other concerns. Referrals: Tomasz Leavitt MD [Primary Care Provider] - As per Instructions Singh Valentin MD [[facility] [place] Primary Care Provider] - As per Instructions
[2017-09-19] MEDS ORDERED: METOPROLOL TARTRATE 50 MG TAB PO ONE (07:37)
[2017-09-19 07:43] LABS: % IMMATURE GRANULYOCYTES 0.3 % (0.0-1.1); ABSOLUTE IMMATURE GRANULOCYTES 0.02 10^3/uL (0.00-0.10); ADD DIFF? NO; ADD MORPH? NO; ADD SCAN? NO; ATYPICAL LYMPHOCYTE FLAG 50 (0-99); FRAGMENT RBC FLAG 0 (0-99); HEMATOCRIT 44.9 % (40.0-51.0); HEMOGLOBIN 15.6 g/dL (13.7-17.5); LEFT SHIFT FLG 0 (0-99); LIPEMIA HEMOLYSIS FLAG 90 (0-99); MEAN CELL HEMOGLOBIN 30.5 pg (27.9-34.1); MEAN CELL HEMOGLOBIN CONCENTR. 34.7 g/dL (32.4-36.7); MEAN CELL VOLUME 87.7 fL (81.5-99.8); MEAN PLATELET VOLUME 11.1 fL (8.7-11.7); PLATELET CLUMPS FLAG 0 (0-99); PLATELET COUNT 155 10^3/uL (150-400); RED BLOOD CELL COUNT 5.12 10^6/uL (4.40-6.38); RED CELL DISTRIBUTION WIDTH 13.6 % (11.5-15.2)
--- NOTE | 2017-09-19 07:44 | CPEKG ---
Heart Rate: 141 RR Interval: 426 P-R Interval: 204 QRSD Interval: 82 QT Interval: 272 QTC Interval: 417 P [place]: 69 QRS [place]: 52 T Wave [place]: 73 EKG Severity - ABNORMAL ECG - EKG Impression: SINUS TACHYCARDIA EKG Impression: MULTIPLE ATRIAL PREMATURE COMPLEXES EKG Impression: FIRST DEGREE AV BLOCK Electronically Signed By: Oleg Caldera 19-Sep-2017 10:39:24
[2017-09-19 07:52] LABS: INR 2.23 (0.83-1.16); PROTIME(PATIENT) 24.9 SEC (12.0-15.0)
[2017-09-19 07:53] LABS: APTT 43.7 SEC (23.0-38.0)
[2017-09-19 08:01] LABS: ANION GAP 16 mEq/L (8-16); CARBON DIOXIDE 20 mEq/l (22-31); CHLORIDE 99 mEq/L (97-110); CREATININE 0.9 mg/dL (0.7-1.3); GLOMERULAR FILTRATION RATE > 60; GLUCOSE 113 mg/dL (70-100); POTASSIUM 3.8 mEq/L (3.5-5.2); SODIUM 135 mEq/L (134-144)
[2017-09-19] MEDS ORDERED: IOPAMIDOL (ISOVUE-300) 100 ML BTL ONE (08:03)
[2017-09-19 09:46] LABS: COLOR YELLOW; LEUKOCYTE ESTERASE,URINE NEGATIVE (NEGATIVE); NITRITE,URINE NEGATIVE (NEGATIVE)
[2017-09-19 10:15] VITALS: BP 94/60; PULSE 83; RESP 16; TEMP 98.8; O2SAT 91
== END 2017-09-19 10:14 | disposition home or self-care (01) ==
DX: R10.32 Left lower quadrant pain (principal); I48.91 Unspecified atrial fibrillation; I10 Essential (primary) hypertension; E86.9 Volume depletion, unspecified; Z87.891 Personal history of nicotine dependence
CPT/HCPCS: Q9967